=== PATIENT | female | born 1990 ===

== ENCOUNTER 2018-07-24 05:13 | Inpatient (IN) | payer OTHER ==
[2018-07-24] VITALS (15 sets, daily range): BP systolic 91–106; BP diastolic 42–70
[~2018-07-24] VITALS: Ht 160 cm; Wt 67.1 kg
[~2018-07-24 05:13] MED LIST: IBUPROFEN600 MG ORAL
[2018-07-24] MEDS ORDERED: Vancomycin 1gm vial IVPB ONE (06:42)
[2018-07-24] MEDS ORDERED: TransDerm Scop 1mg/72HR Patch TDERMAL ONE ×2 (06:42→08:30)
[2018-07-24] MEDS ORDERED: Succinylcholine 20mg/ml 10ml vial ONE (06:43)
[2018-07-24] MEDS ORDERED: Bacitracin 50000 Units Vial ONE (06:43)
[2018-07-24] MEDS ORDERED: Thrombin 5000 units TOPIC ONE (06:43)
[2018-07-24] MEDS ORDERED: Gelfoam Size TOPIC ONE (06:43)
[2018-07-24] MEDS ORDERED: Zemuron 50mg/5ml Inj IV ONE (06:43)
[2018-07-24] MEDS ORDERED: Midazolam 2mg/2ml Inj ONE (06:52)
[2018-07-24] MEDS ORDERED: fentaNYL 100 mcg/2 mL IV ONE (06:52)
[2018-07-24] MEDS ORDERED: Lidocaine 1% MPF 10mg/ml 5ml ONE (06:52)
[2018-07-24] MEDS ORDERED: NS Irrig 1000ml ONE (07:00)
[2018-07-24] MEDS ORDERED: LR 1000ml ONE (07:00)
[2018-07-24] MEDS ORDERED: Phenylephrine 10mg/ml Vial ONE (07:00)
[2018-07-24] MEDS ORDERED: Glycopyrrolate 0.2mg/ml 1ml Vial ONE (07:00)
[2018-07-24] MEDS ORDERED: ceFAZolin sod 2 GM in D5W 110 ML IVPB ONE (07:00)
[2018-07-24] MEDS ORDERED: Neostigmine 1mg/ml 10ml Inj ONE (07:00)
[2018-07-24] MEDS ORDERED: Sterile Water Irrig 1000ml IRRIG ONE (07:00)
[2018-07-24] MEDS ORDERED: Propofol 1,000mg/ 100ml btl IV ONE ×2 (07:00)
--- NOTE | 2018-07-24 07:28 | Pre-Procedure Note/Attestation ---
Pre-Procedure Note/Attestation Complete Prior to Procedure Planned Procedure: not applicable Procedure Narrative: C56 artificial disc replacement and C67 anterior cervical discectomy fusion Indications for Procedure Pre-Operative Diagnosis: C56 and C67 herniation Attestation I attest that I discussed the nature of the procedure; its benefits; risks and complications; and alternatives (and the risks and benefits of such alternatives ), prior to the procedure, with the patient (or the patient's legal circulation representative). I attest that, if there was a reasonable possibility of needing a blood transfusion, the patient (or the patient's legal circulation representative) was given the [facility] standardized written summary, pursuant to the Louis Neema Blood Safety Act ([place] Health and Safety Code # 1645, as amended). I attest that I re-evaluated the patient just prior to the surgery and that there has been no change in the patient's H&P, except as documented below: Justo Martinez MD Jul 24, 2018 07:28
--- NOTE | 2018-07-24 07:29 | Brief Operative Note ---
Immediate Post Operative Note Operative Note Chief Complaint: neck pain and radiculopathy Pre-op Diagnosis: C56 and C67 herniation Procedure: C56 artificial disc replacement and C67 anterior cervical discectomy fusion Post-op Diagnosis: same as pre-op Findings: consistent w/pre-op dx studies Surgeon: Michelle Management Planner: Lena Anesthesiologist: TATI Anesthesia: general Specimen: none Complications: none Condition: stable Fluids: IVF Implant(s) used?: Yes - Prodisc C sz 5, nuvasiver interlock c sz 6 Justo Martinez MD Jul 24, 2018 07:29
[2018-07-24] MEDS ORDERED: Morphine Sulfate 4mg/ml Inj (IV USE ONLY) IV PRN ×2 (07:30)
[2018-07-24] MEDS ORDERED: Milk of Magnesia 30ml Ud ORAL PRN (07:30)
[2018-07-24] MEDS ORDERED: Morphine Sulfate 2mg/ml Inj(IV/IM USE ONLY) IV PRN (07:30)
[2018-07-24] MEDS ORDERED: HYDROcodone/Acetamin 7.5/325 tab ORAL PRN ×2 (07:30)
[2018-07-24] MEDS ORDERED: HYDROmorphone 1mg/ml Carpuject IVP PRN (07:30)
[2018-07-24] MEDS ORDERED: Naloxone 0.4mg/ml Inj IVP PRN (07:30)
[2018-07-24] MEDS ORDERED: Chloraseptic Spray 20mL Bottle ORAL PRN (07:30)
[2018-07-24] MEDS ORDERED: HYDROcodone/Acetamin 5/325 tab ORAL PRN (07:30)
[2018-07-24] MEDS ORDERED: Morphine Sulfate 10mg/ml Inj ONE (08:16)
[2018-07-24] MEDS ORDERED: Sodium Chloride 10ml vial INJ ONE (08:16)
--- NOTE | 2018-07-24 08:27 | Anethesia Preoperative Eval ---
Anesthesia Pre-op PMH/ROS General Date of Evaluation: Jul 24, 2018 Time of Evaluation: 06:48 Anesthesiologist: Dirk ASA Score: ASA 2 Mallampati Score Class I : Soft palate, uvula, fauces, pillars visible Class II: Soft palate, uvula, fauces visible Class III: Soft palate, base of uvula visible Class IV: Only hard plate visible Mallampati Classification: Class II Surgeon: Michelle Diagnosis: Cervical radiculopathy Surgical Procedure: ACDF Anesthesia History: none Family History: no anesthesia problems Allergies: Coded Allergies: No Known Allergies (Unverified , 07/23/18) Medications: see eMAR Patient NPO?: Yes NPO Date: Jul 23, 2018 NPO Time: 1800 Past Medical History Cardiovascular: Denies: HTN, CAD, MT, valve dz, arrhythmia, other Pulmonary: Denies: asthma, COPD, OLEG, other Gastrointestinal/Genitourinary: Reports: GERD - mild; Denies: CRI, ESRD, other Neurologic/Psychiatric: Reports: other - chronic pain; Denies: dementia, CVA, depression/anxiety, TIA Endocrine: Denies: DM, hypothyroidism, steroids, other HEENT: Denies: cataract (L), cataract (R), glaucoma, EKWOK (L), EKWOK (R), other Hematology/Immune: Denies: anemia, DVT, bleeding disorder, other Musculoskeletal/Integumentary: Denies: OA, RA, DJD, DDD, edema, other PMH Narrative: as above PSxH Narrative: Bilateral bunionectomy Anesthesia Pre-op Phys. Exam Physician Exam Last Vital Signs Date Time Temp Pulse Resp B/P (MAP) Pulse Ox O2 Delivery O2 Flow Rate FiO2 07/24/18 06:02 Room Air 07/24/18 05:49 97.5 65 18 104/70 (81) 98 Constitutional: NAD Neurologic: CN 2-12 intact Cardiovascular: RRR, no M/R/G Respiratory: CTA Gastrointestinal: S/NT/ND Airway Exam Mallampati Score: Class II MO: full Neck: stif ROM: limited Teeth: intact Dentures: no upper, no lower Anesthesia Pre-op A/P Labs see chart Urine Test Test 07/24/18 05:30 Urine HCG, Qualitative Negative (NEGATIVE) Studies Pre-op Studies: EKG - NSR Risk Assessment & Plan Assessment: ASA 2 Plan: GA with ETT PONV prevention neuromonitoring Status Change Before Surgery: No Pre-Antibiotics Drug: Ancef 1gr. Given Within 1 Hr of Incision: Yes Time Given: 07:40 Don Cavazos MD Jul 24, 2018 08:27
[2018-07-24] MEDS ORDERED: Hydromorphone 0.5mg/0.5ml inj IVP PRN (08:30)
[2018-07-24] MEDS ORDERED: DiphenhydrAMINE 50mg/ml Inj IVP PRN (08:30)
[2018-07-24] MEDS ORDERED: Acetaminophen (Non formulary) 100 ML IV ONE (08:30)
[2018-07-24] MEDS ORDERED: Midazolam 2mg/2ml Inj IVP PRN (08:30)
[2018-07-24] MEDS ORDERED: Ketorolac 30mg Inj IV PRN (08:30)
[2018-07-24] MEDS ORDERED: Metoclopramide 10mg/2ml Inj IVP PRN (08:30)
[2018-07-24] MEDS ORDERED: Meperidine 50mg/ml Inj(FOR RIGORS ONLY) IV PRN (08:30)
[2018-07-24] MEDS ORDERED: Ketorolac 30mg Inj ONE (08:33)
--- NOTE | 2018-07-24 10:31 | Immediate Post-Op Evaluation ---
Immediate Post-Op Evalulation Immediate Post-Op Evalulation Procedure: ACDF C5-C6, C6-C7 Date of Evaluation: Jul 24, 2018 Time of Evaluation: 10:29 IV Fluids: 1000 Blood Products: none Estimated Blood Loss: <50 Urinary Output: 200 Blood Pressure Systolic: 96 Blood Pressure Diastolic: 54 Pulse Rate: 72 Respiratory Rate: 20 O2 Sat by Pulse Oximetry: 98 Temperature (Fahrenheit): 97.8 Pain Score (1-10): 1 Nausea: No Vomiting: No Complications none Patient Status: reacts, patent, extubated, none Hydration Status: adequate Don Cavazos MD Jul 24, 2018 10:31
--- NOTE | 2018-07-24 11:40 | NUR ---
NURSE NOTES: PATIENT ARRIVED FROM PACU ON BED WITH MOTHER PRESENT. PATIENT EASY TO AROUSE. DENIES PAIN AT THIS TIME. 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 ABLE TO SWALLOW WITH MILD SORENESS. BED SIDE REPORT RECEIVED. SCDS ON BILATERALLY. BED IN LOW AND LOCKED POSITION. PATIENT AD MOTHER ORIENTED TO ROOM. CALL LIGHT WITHIN REACH. WILL CONTINUE TO MONITOR.
--- NOTE | 2018-07-24 14:00 | NUR ---
NURSE NOTES: PLACED CALL TO DR. YOON TO INFORM OF PATIENT'S ARRIVAL TO FLOOR. AWAITING RETURN CALL.
[2018-07-24] MEDS: NS w/KCl 20mEq 1000ml 1,000 ML IV SCH (14:30)
[2018-07-24] MEDS: Dexamethasone 4mg/ml vial IVP SCH ×3 (14:31→23:26)
[2018-07-24] MEDS: ceFAZolin sod 1 GM in D5W 55 ML IV SCH ×2 (15:44→23:25)
--- NOTE | 2018-07-24 17:30 | Operative Note - Dictated ---
DATE OF OPERATION: 07/24/2018 SURGEON: Justo Martinez MD, Orthopedic Spine Surgeon. SIGN SHOP SUPERVISOR SURGEON: Dr. Kingston Paredes. PREOPERATIVE DIAGNOSES: 1. Intractable neck pain. 2. Radiculopathy. 3. Herniation, C5-C6 and C6-C7. 4. Neural foraminal stenosis C5-C6 and C6-C7. 5. Stenosis. POSTOPERATIVE DIAGNOSES: 1. Intractable neck pain. 2. Radiculopathy. 3. Herniation, C5-C6 and C6-C7. 4. Neural foraminal stenosis C5-C6 and C6-C7. 5. Stenosis. PROCEDURE PERFORMED: 1. Anterior cervical discectomy and artificial disc replacement of C5-C6 using a Synthes Prodisc C 5 height. 2. Anterior cervical discectomy and fusion of C6-C7 using Nuvasive Interlock C size 6 PEEK cage and three 13 mm screws, Osteocell allograft bone and local autograft. 3. Use of intraoperative microscope. 4. Motor evoked potential monitoring. 5. Somatosensory evoked potential monitoring. 6. Supervision and interpretation of fluoroscopy. COMPLICATIONS: None. ANESTHESIA: General. ESTIMATED BLOOD LOSS: Less than 50 mL. INDICATIONS FOR SURGERY: This patient is a 27-year-old female who has a history of diagnoses as listed above. As of result of this, the patient sustained intractable neck pain, radiculopathy, herniation, C5-C6 and C6-C7, neural foraminal stenosis C5-C6 and C6-C7, stenosis. We tried a course of conservative management but despite this course there was still a significant component of persistent, recalcitrant neck pain and arm pain. The MRI demonstrated significant neural foraminal compromise secondary to disc herniations at C5-C6 and C6-C7. We had a long discussion with Anita regarding the risks and benefits of surgery. Our discussion included but was not limited to nonoperative management, chiropractic management, another epidural steroid injection as well definitive management in the form of surgery. We recommended an artificial disc replacement of cervical C5-C6 and anterior cervical discectomy and fusion of cervical C6-C7 as final definitive management. We reviewed the risks and benefits of surgery with the patient. Our discussion included a comprehensive review of the clinical issues and the nature of the clinical decision. We reviewed the alternatives, including doing nothing. The patient elected to proceed accordingly with an artificial disc replacement of cervical C5-C6 and anterior cervical discectomy and fusion of cervical C6-C7. We had a long discussion regarding the risks, alternatives and benefits of surgery. Our description of the risks included a discussion in person as well as a signed consent which detailed all pertinent risks from the procedure itself. Briefly, our discussion included but was not limited to infection, bleeding, pseudarthrosis, spinal cord injury, neurovascular injury, dural tear, CSF leak, neuropathy, paralysis, permanent weakness/drop foot/drop arm, paresthesias, blindness, palsy and weakness. The patient understood there may be a need for a revision surgery or additional procedures. Approach-related complications including dysphonia, dysphagia, blindness, permanent vocal cord and neural injury, hematoma, swallowing and breathing difficulty. Medical complications were reviewed including liver, kidney, shock, cardiopulmonary failure, anesthesia complications including , swelling, damage to the musculature, larynx/voice injury or loss, esophagus/throat, trachea, blood vessels and muscles/muscular sprain and lungs/pneumothorax during this surgical procedure; injury to deeper structures may be temporary or permanent. After this review of risks, the patient understood these and elected to proceed. A written and verbal consent was given. We discussed the pros and cons of all the alternatives. We discussed the uncertainties associated with the decision. Afterwards I assessed the patient's understanding and explored their preferences. All questions were answered and no guarantees were given. Medical clearance was obtained prior to surgery. INTRAOPERATIVE FINDINGS: A discrete disc herniation which was found posterior to an obvious tear in the posterior longitudinal ligament at C5-C6, the tear in the PLL was approximately 20degrees cephalad to caudad on the right side. Through this tear I placed a microsect 1b and mobilized the tear and encountered a fragment leading to a tail of nuclear pulposus tissue. This was causing a considerable amount of neural foraminal stenosis with significant encroachment on the neural foramina and spinal cord which was being impinged as a result of this pressure. Upon inspection of the interspace at cervical C6-C7. I noticed a rent in the posterior longitudinal ligament or PLL which was approximately 30degrees cephalad to caudad. Upon inspection of this tear once it was mobilized with Kerrison rongeurs there was a disc fragment and herniation causing encroachment on the neural foramina and spinal cord posterior to the PLL. This was resected as well which caused some noted relief on the underlying neural elements. DESCRIPTION OF PROCEDURE: Under the benefit of general endotracheal anesthesia and with the assistance of the entire operative team, the patient was moved from the gurney onto the operative table in the supine position. The head was secured and carefully positioned appropriately. Bilateral arms were secured with GelPads and foam and all bony prominences were padded. For the bilateral lower extremities SCD and DELFINO hose were placed for DVT prophylaxis. A surgical timeout was called which corroborated our planned procedure of artificial disc replacement of an artificial disc replacement of cervical C5-C6 and anterior cervical discectomy and fusion of cervical C6-C7. Preoperative antibiotics were administered within 30 minutes of the incision for antibiotic prophylaxis. Using lateral fluoroscopic radiography, the operative levels were delineated. Next the wound was prepped and draped with Chlorhexidine and sterile drapes. An incision was based on lateral fluoroscopy and we centered our incision at the C5-C6 and C6-C7. Interspace and next using a standard Sue-Jurado anterior based approach the incision was taken down through the skin and subcutaneous tissues until the vertebral bodies and their corresponding disc spaces were visualized. A needle was placed into the interspace to confirm placement of the operative interspace and we performed the remainder of procedure under microscopic visualization. Next, using a bipolar and Bovie cautery to ensure meticulous hemostasis, the longus colli was mobilized bilaterally and retractors were placed deep to the longus colli bilaterally to address retraction. Next we turned our attention to the radical anterior discectomy. This was initially performed at C5-C6. First by using a 15 blade scalpel followed by narrow pituitaries and a Microsect 5-B curette was used to denude the endplate of all cartilaginous tissue. Next using a Open[employer]ark[employer] Keshawn AM8 drillbit the vertebral endplates were denuded of all residual cartillage in a [id number] and layer by layer fashion, and ultimately the posterior uncinate joints bilaterally and posterior osteophytic lips and margins were carefully denuded until clear visualization of the posterior longitudinal ligament was possible. An endplate preparation was performed in the exact same fashion using an intervertebral pallet rectifier, sequential distraction was obtained throughout the disc space. We saw a tear/rent in the PLL and this was carefully mobilized and dissected using a Microsect 1-B curet until we visualized a discrete disc herniation with compression of the spinal cord as well as neural foramina right sided. This neural foraminal compression was carefully resected using a Kerrison-1 and Kerrison-2 rongeurs until complete decompression of the spinal cord was visualized and complete decompression of the neural foramina and nerve root therein as well as the axilla and lateral margin of the nerve root was visualized and subsequently completely decompressed. The family was notified at one hour intervals throughout the procedure to provide for consistent updates. We next turned our attention towards trialing our implant within the disc space. We initially tried size 5 and this Prodisc Cervical spacer fit well in regards to depth and width. This implant was opened and prepared. Next under direct visualization I confirmed excellent fit in respect to the anterior and posterior vertebral bodies, the uncinate joints and in regards to toggle. Once satisfied with this placement on serial AP and lateral fluoroscopy I turned my attention towards cutting our ajay. These were cut in the bones using a reciprocating drill and afterwards all free fragments of bone were irrigated. Next FloSeal was placed into the interspace, then removed in its entirety and the implant was inserted using fluoroscopic guidance. Next the Synthes Prodisc C size 5 ADR was then carefully advanced and secured into the intervertebral space under direct visualization and with supervision of AP and lateral fluoroscopic views. I next turned my attention towards the radical anterior discectomy. This was then performed at Cervical C6-C7. First by using a 15 blade scalpel followed by narrow pituitaries and a micro-sect 5-B curette was used to denude the endplate of all cartilaginous tissue. Next using a Movista Keshawn AM8 drillbit the vertebral endplates were denuded of all cartilaginous tissue in a [id number] and layer by layer fashion, and ultimately the posterior uncinate joints bilaterally and posterior osteophytic lips and margins were carefully denuded until wide and thorough visualization of the posterior longitudinal ligament was possible. At this level the endplate preparation was performed in the exact same fashion using an intervertebral pallet rectifier, sequential distraction was obtained throughout the disc space. We saw a tear/rent in the PLL and this was carefully mobilized and dissected using a micro-set 1-B curette until we visualized an obvious disc herniation with compression of the spinal cord as well as neural foramina right sided. This neural foraminal compression was carefully resected using a Kerrison-1 and Kerrison-2 rongeurs until complete decompression of the spinal cord was visualized and complete decompression of the neural foramina and nerve root therein as well as the axilla and lateral margin of the nerve root was visualized and subsequently completely decompressed. We next turned our attention towards trialing our implant within the disc space. We initially tried size 5 and afterwards size 6 trial from the Nuvasive interlock system at each level, which appeared to be appropriate under AP and lateral fluoroscopy as well as in terms of its height, depth, width and lack of toggle. The PEEK polyetheretherketone interbody cages were then both packed with allograft bone from Osteocel and local autograft bone matrix. Next these were then carefully advanced and secured into their intervertebral spaces under direct visualization and with supervision of AP and lateral fluoroscopic views. We next turned our attention towards plating. Plating was performed at each level with the Nuvasive interlock-C plating system. A total of three screws, size 13 mm in length were inserted and confirmed under AP and lateral fluoroscopy and confirmed to be in excellent position. After a finger sweep we confirmed removal of all sponges. The retractor was removed and we next turned our attention to meticulous hemostasis with FloSeal and bipolar cautery. After the sponge and needle count was again found to be correct with our second count, we next turned our attention to closure. The wound was again copiously irrigated with antibiotic impregnated saline Closure consisted of 4-0 clear nylon for the platysma, and 5-0 clear nylon for the superficial skin. Final skin closure and dressings consisted of Dermabond. Prior to final closure, a final radiograph was obtained which demonstrated the hardware is intact with excellent position throughout. The patient tolerated the procedure well. The patient was carefully extubated after the conclusion of surgery. We discussed the findings of the surgery with the family upon completion of the case. At this point the patient was transferred to the spine floor for further observation. Justo Martinez M.D. DR: PRAFUL JOB#: [id number] CC: FRANK
[2018-07-24] MEDS: Docusate 100mg cap ORAL SCH (17:56)
--- NOTE | 2018-07-24 18:30 | NUR ---
NURSE NOTES: PATIENT REMAINS STABLE. MORE AWAKE. TOLERATING REGULAR SOFT FOOD. DENIES PAIN ONLY SORENESS TO SURGICAL SITE.
--- NOTE | 2018-07-24 19:00 | NUR ---
Nurse Notes Received report form Sejal WINN. Pt alert oriented x4. pt on room air no acute respiratory distress noted. Pt denies c/p sob, at this time. dressing to neck intact no s/s of infection noted. denies trouble swallowing. pt ambulate with assistance to restroom. able to void freely IV to left hand intact. Pt bed in lowest position call light in reach, side rails up. will continue to monitor.
--- NOTE | 2018-07-24 19:25 | NUR ---
HAND-OFF: Report given to ANDREINA WINN.
--- NOTE | 2018-07-24 20:18 | Cardiology Progress Note ---
Assessment/Plan Assessment/Plan [id number] full note dicated doign well bp lwo but this way preop as weell on ivf no sx of hypotension Objective Last 24 Hour Vital Signs Date Time Temp Pulse Resp B/P (MAP) Pulse Ox O2 Delivery O2 Flow Rate FiO2 07/24/18 18:15 97.4 74 18 98/64 (75) 96 07/24/18 16:00 98.0 62 19 97/58 (71) 95 07/24/18 13:15 98.0 62 19 97/58 (71) 95 07/24/18 12:15 97.0 63 20 94/57 (69) 98 07/24/18 11:40 Nasal Cannula 2.0 07/24/18 11:40 98.3 61 16 92/56 (68) 97 07/24/18 11:33 98.0 07/24/18 11:33 98.0 07/24/18 11:26 98.0 65 14 105/53 99 Nasal Cannula 3 07/24/18 11:11 75 19 93/64 100 Nasal Cannula 3 07/24/18 11:05 78 16 106/50 100 Nasal Cannula 3 07/24/18 10:50 75 15 96/53 100 Simple Mask 6 07/24/18 10:40 79 14 92/45 99 Simple Mask 6 07/24/18 10:35 74 13 100/42 99 Simple Mask 6 07/24/18 10:31 72 20 98 07/24/18 10:30 75 15 91/47 98 Simple Mask 6 07/24/18 10:26 97.8 85 20 94/56 98 Simple Mask 6 07/24/18 06:02 Room Air 07/24/18 05:49 97.5 65 18 104/70 (81) 98 Intake and Output 07/23/18 07/24/18 18:59 06:59 # Voids 2 Laboratory Tests Test 07/24/18 05:30 Urine HCG, Qualitative Negative (NEGATIVE) Bj Hoyos MD Jul 24, 2018 20:18
--- NOTE | 2018-07-24 23:30 | Consultation ---
DATE OF CONSULTATION: 07/24/2018 CARDIOLOGY CONSULTATION: CONSULTING PHYSICIAN: Bj Hoyos M.D. REFERRING PHYSICIAN: Justo Martinez M.D. REASON FOR REFERRAL: Postop medical care. HISTORY OF PRESENT ILLNESS: This is a 27-year-old female, who has been admitted, has undergone spine surgery for intractable back pain, radiculopathy, and herniation at C5-C6 and C6-C7 with neuroforaminal narrowing and stenosis. This patient underwent anterior cervical discectomy and artificial disc replacement and is being seen postoperatively. She does have some pain at the surgical site. Otherwise, no other major issues. She has not had any chest pain. There is no PND. No orthopnea. No palpitation. No dizziness at this time although when the first time she got out of bed, she was dizzy, the second time she has been okay. She has walked to the bathroom couple of occasions, she needs to go again now. REVIEW OF SYSTEMS: GASTROINTESTINAL: There is no nausea, vomiting, diarrhea, or constipation. GENITOURINARY: Negative. PULMONARY: Negative. CONSTITUTIONAL: Negative. NEUROLOGIC: Negative. ALLERGIES: None. SOCIAL HISTORY: She does not smoke or drink alcoholic beverages of significant degree. PAST MEDICAL HISTORY: Denies diabetes or high blood pressure. She does have some minimally elevated high cholesterol. No history of heart attack, cancer, stroke, hepatitis, tuberculosis, asthma, emphysema, ulcers, kidney problems, liver problems, thyroid problems, anemia, arthritis, HIV, or AIDS. FAMILY HISTORY: Negative. PHYSICAL EXAMINATION: GENERAL: Shows to be a young female, in no respiratory distress. Surgical dressing with surgical glue in place anteriorly. LUNGS: Clear to auscultation and percussion. CARDIAC: Regular rate and rhythm. No heaves, thrills, or gallops noted. ABDOMEN: Soft, nontender. Positive bowel sounds. EXTREMITIES: There is no edema. She has pneumatic compression stockings. NEUROLOGICAL: She moves all four extremities. Cranial nerves appear to be intact. She looks comfortable. LABORATORY DATA: Preop labs were reviewed. Creatinine of 8.7, potassium 4.4. White count of 7.2, hemoglobin 14.3, and platelet count of 218. Preoperative PTT of 30. INR 1.2. Preop EKG shows sinus rhythm, no significant ST or T-wave abnormalities. ASSESSMENT AND PLAN: 1. Cervical radiculopathy with disc herniation. 2. Postoperative pain. The patient is doing well. She does have her blood pressure a bit on the lower side. In review of the records from Dr. Gray who saw the patient in preoperative consultation, it seems that her blood pressure was about 104/85 systolic. She will receive some normal saline boluses overnight. She does not appear to be any symptomatic at this time and I will follow the patient along with you. Hopefully, she will be able to discharge home tomorrow morning. She looks rather good. Bj Hoyos M.D. DR: RU JOB#: [id number] CC:
[2018-07-25] VITALS: BP 101/61
[2018-07-25] MEDS: NS w/KCl 20mEq 1000ml 1,000 ML IV SCH ×2 (01:23→08:00)
[2018-07-25 04:00] VITALS: BP 98/54
[2018-07-25] MEDS: Dexamethasone 4mg/ml vial IVP SCH (06:24)
[2018-07-25] MEDS: ceFAZolin sod 1 GM in D5W 55 ML IV SCH (06:44)
--- NOTE | 2018-07-25 07:20 | NUR ---
NURSE NOTES: WALKING ROUNDS DONE WITH OUTGOING RN. PATIENT AWAKE IN BED. C/O SORENESS TO ANTERIOR NECK SITE. OFFERED PAIN MEDS. REFUSED PAIN MEDS BUT RATHER HAVE THROAT SPRAY/ THROAT LOZENGE. QUESTIONS ANSWERED. NEEDS MET. DISCUSSED PLAN OF CARE FOR THE DAY. BED IN LOW AND LOCKED POSITION. CALL LIGHT WITHIN REACH.
[2018-07-25 08:00] VITALS: BP 105/57
--- NOTE | 2018-07-25 08:15 | Discharge Summary ---
DATE OF ADMISSION: 07/24/2018 DATE OF DISCHARGE: 07/25/2018 PROCEDURE PERFORMED DURING ADMISSION: C5-C6 artificial disc replacement, C6-C7 anterior cervical discectomy and fusion. REASON FOR ADMISSION: Herniation, C5-C6 and C6-C7. HOSPITAL COURSE/TREATMENT RENDERED: DISCHARGE PHYSICAL EXAMINATION: 1. The patient was ambulating with and without the assistance of physical therapy. 2. Prior to discharge home, incision was clean and dry with minimal swelling. 3. Follows commands. 4. Alert and oriented. 5. Bermeo discontinued, voiding. 6. Incentive spirometer at bedside. 7. IVF hep-locked. MOTOR: Demonstrates expected postoperative bulk and tone. Moves biceps, triceps, and deltoid musculature on command. Moves hip flexors, quadriceps, tibialis anterior, EHL, gastrocsoleus musculature on command as well. TREATMENT RENDERED: 1. Daily nursing care. 2. Physical Therapy. 3. Occupational Therapy. 4. Intravenous medications. 5. Oral medications. 6. Daily postoperative examinations by Spine Surgery Team. CONDITION OF PATIENT ON DISCHARGE: The condition on discharge is stable for discharge to home. DISCHARGE INSTRUCTIONS: Our specific instructions relating to physical activity, medications, diet, and follow-up care are detailed in our standard operative folder and were given to this patient prior to surgery. We will however summarize these briefly as stated below. Regarding physical activity, we would like the patient to limit their flexion, extension, and rotation. We also require a limitation on their bending, lifting, and twisting. All medication has been called in prior to surgery to their pharmacy of choice. They can resume their regular diet once tolerated. We would like them to shower and limit soaking the wound in a tub/Jacuzzi/the ocean for a period of one month or until the incision is completely healed. We will have them follow up in our office in three weeks' time for their regularly scheduled appointment. They understand to call our office tomorrow to schedule the time for their three-week followup appointment. The patient will notify us should they experience any increase in the severity of pain, redness/swelling or drainage from their incision. Justo Martinez M.D. DR: RAY JOB#: [id number] CC:
[2018-07-25] MEDS: Docusate 100mg cap ORAL SCH (09:08)
--- NOTE | 2018-07-25 10:35 | NUR ---
NURSE NOTES: DISCHARGE ORDER RECEIVED. INSTRUCTIONS GIVEN AND EXPLAINED WITH PATIENT EDUCATION PROVIDED. VERBALIZED UNDERSTANDING. ALL BELONGINGS WITH FAMILY MEMBER. DISCUSSED WITH MD. WILL F/U IN OFFICE SCHEDULED.
[2018-07-25] MEDS ORDERED: Tubing IV Secondary IV ONE (10:59)
--- NOTE | 2018-07-25 11:03 | NUR ---
P.T Note: P.T evaluation completed and tx initiated consisted of education and instruction on spinal precautions and proper body mechanics to apply during functional mobility tasks thru written handout, discussion , practice and return demonstration. After P.T instructions, patient able to verbalize/indicate good understanding and good return demonstration of the above topic and mobility tasks. Pt is currently functioning safely and independently while adhering to spinal precautions by demonstrating proper body mechanics. No further P.T follow up needed. [place] P.T services.
--- NOTE | 2018-07-25 11:06 | NUR ---
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
--- NOTE | 2018-07-25 11:40 | NUR ---
NURSE NOTES: Got a call from patient that she left a watch in the room. Found white Jose G Hylton S2 watch in the room and notified patient. Per patient: Jossie Browne will come tomorrow 07/26/18 around 11:00 am to picker feeder the watch. Kept watch in lock prescription box. Addendum: 07/25/18 at 1857 by JOHN PAUL MANUEL RN NURSE NOTES: Left the watch at security desk.
[2018-07-25 13:43] VITALS: BP 116/58
--- NOTE | 2018-07-25 13:43 | 48 Hour Post Anesthesia Eval ---
Post Anesthesia Evaluation Procedure: ACDF C5-C6, C6-C7 Date of Evaluation: Jul 25, 2018 Time of Evaluation: 11:25 Blood Pressure Systolic: 116 0: 58 Pulse Rate: 68 Respiratory Rate: 20 Temperature (Fahrenheit): 97.6 O2 Sat by Pulse Oximetry: 98 Airway: patent Nausea: No Vomiting: No Pain Intensity: 2 Hydration Status: adequate Cardiopulmonary Status: stable Mental Status/LOC: patient returned to baseline Follow-up Care/Observations: n/a Post-Anesthesia Complications: none Follow-up care needed: ready to discharge Don Cavazos MD Jul 25, 2018 13:43
--- NOTE | 2018-07-25 17:46 | Diagnostic Imaging Report ---
Indication: Intraoperative imaging Findings: 3 views of the cervical spine were obtained. Anterior discectomy fusion C5-6 noted. Prosthetic disc at C5-6 noted. Anterior C6-7 fusion also noted. IMPRESSION: Intraoperative imaging
== END 2018-07-25 11:00 | disposition home or self-care (01) | DRG 473 ==
LOC: SDSOVERFLO 05:13 → 3E 10:41
PROC: 0RG10A0 Fusion of Cervical Vertebral Joint with Interbody Fusion Device, Anterior Approach, Anterior Column, Open Approach (ICD-10-PCS; principal; 2018-07-24 07:00)
PROC: 0RT30ZZ Resection of Cervical Vertebral Disc, Open Approach (ICD-10-PCS; principal; 2018-07-24 07:00)
PROC: 4A11X4G Monitoring of Peripheral Nervous Electrical Activity, Intraoperative, External Approach (ICD-10-PCS; principal; 2018-07-24 07:00)
PROC: 0RR30JZ Replacement of Cervical Vertebral Disc with Synthetic Substitute, Open Approach (ICD-10-PCS; principal; 2018-07-24 07:00)
DX: M50.122 Cervical disc disorder at C5-C6 level with radiculopathy (principal); M48.02 Spinal stenosis, cervical region; G89.18 Other acute postprocedural pain
CPT/HCPCS: 36415; 72040; 76000; 81025; 86850; 86900; 86901; 87081; 94003; 94150; J2250; J2370; J2405; J2710